=== PATIENT | male | born 1965 | race Caucasian/White ===

== ENCOUNTER → 2020-10-31 | Outpatient (CLI) | payer BC ==
[~2020-10-31] MED LIST: CELEXA 20MG TAB20 MG PO; FISH OIL 1,0001 EAC5 PO; FLOMAX 0.4 MG0.4 MG PO; OMEPRAZOLE20 MG PO; STRATTERA60 MG PO; VITAMIN D250 MCG PO; ZOCOR 40 MG TAB40 MG PO
== END ==
LOC: CT 08:32
DX: R31.9 Hematuria, unspecified (principal)
CPT/HCPCS: Q9963; Q9967

== ENCOUNTER → 2020-12-14 | Day surgery (SDC) | payer BC ==
[~2020-12-14] VITALS: Ht 172.7 cm; Wt 97.5 kg
== END | disposition home or self-care (01) ==
LOC: OR 10:39
DX: R31.29 Other microscopic hematuria (principal); N40.1 Benign prostatic hyperplasia with lower urinary tract symptoms; Z98.52 Vasectomy status
CPT/HCPCS: J7040